=== PATIENT | male | born 1950 | race Caucasian/White ===

== ENCOUNTER → 2018-01-29 07:10 | Outpatient (CLI) | payer MEDICARE, OTHER, SELFPAY ==
[2018-01-29 10:51] LABS: BUN 18 mg/dL (7-18); Creatinine, Serum 0.86 mg/dL (0.70-1.30); Glucose 102 mg/dL (74-106)
[2018-01-29 10:52] LABS: Anion Gap 8 (5-15); BUN/Creat Ratio 20.9 RATIO (10-20); Calcium,Total 8.4 mg/dL (8.5-10.1); Chloride 104 mmol/L (98-107); Cholesterol 186 mg/dL (200); EST Glomerular Filtration Rate 94 mL/min (>60); Est Glom Filt Rate - Afr Amer 114 mL/min (>60); High Density Lipoprotein 32 mg/dL; PSA,Total - Annual Screen 1.35 ng/mL (0.00-4.00); Potassium 3.9 mmol/L (3.5-5.1); Sodium Level 142 mmol/L (136-145); Triglycerides 302 mg/dL; Very Low Density Lipoprotein 60 mg/dL (5-40)
== END ==
PROVIDERS: Family Provider Family Medicine; PCP Family Medicine; Referring Provider Family Medicine; Visit Provider Family Medicine
DX: I10 Essential (primary) hypertension (principal); Z12.5 Encounter for screening for malignant neoplasm of prostate
CPT/HCPCS: 36415; 80048; 80061; 84153; G0103

== ENCOUNTER → 2018-08-07 | Outpatient (CLI) | payer MEDICARE, OTHER, SELFPAY ==
--- NOTE | 2018-08-07 10:34 | STRESSREP ---
Stress Test Report Date: 08-07-18 Procedure: Exercise tolerance test/imaging study Indications: Chest pain; Abnormal ECG Consent: Per the patient Procedure: The patient exercised on a Diogo protocol for 6 minutes completing stage I achieving a peak heart rate of 153 bpm (100% % predicted maximal heart rate) with a peak blood pressure 230/92 mmHg and a peak MET capacity of 7 METs. The baseline ECG demonstrated normal sinus rhythm; right bundle branch block. The peak exercise ECG demonstrated continued right bundle branch block. There was an occasional PVC during exercise/recovery and transient ventricular bigeminy during recovery. The functional capacity was considered decreased. There was no complaint of chest discomfort during exercise or recovery. The examination was discontinued secondary to dyspnea. Impression: 1. Technically adequate (percent predicted maximal heart rate greater than 85%) exercise tolerance test 2. Peak exercise ECG with continued right bundle branch block pattern 3. There was an occasional PVC during exercise and recovery and transient ventricular bigeminy during recovery 4. Normal resting blood pressure-exaggerated response to exercise 5. Nuclear images pending Myocardial perfusion imaging study: Technique: The patient was injected with 14.3 mCi of technetium 99m Cardiolite and subsequently rest SPECT Cardiolite nuclear imaging was obtained in the horizontal long, vertical long, and short axis views. The patient exercised on a Diogo protocol for 6 minutes completing stage I achieving a peak heart rate of 153 bpm (100% % predicted maximal heart rate) with a peak blood pressure 230/92 mmHg and a peak MET capacity of 7 METs. The patient was injected with 44.4 mCi of technetium 99m Cardiolite and subsequently stress SPECT Cardiolite nuclear imaging was obtained in the horizontal long, vertical long, and short axis views. A gated Cardiolite study at peak stress was obtained. Interpretation: Rest and stress SPECT Cardiolite nuclear imaging status post realignment, normalization, and attenuation correction, demonstrates of a small area of subtle diminished tracer uptake near the apical segments without significant change between rest and stress. There is end systolic thickening and brightening. The gated Cardiolite study demonstrates myocardial thickening and inward wall motion. The reported LVEF is 62 %. Impression: 1. Rest and stress SPECT Cardiolite nuclear imaging demonstrate myocardial perfusion changes appearing compatible with physiologic apical thinning with no myocardial perfusion changes considered diagnostic for associated stress-induced myocardial ischemia. 2. The gated Cardiolite study reports an LVEF of 62 %. This note was generated with Dragon dictation software. It may contain incorrect words, spelling, and punctuation that were not noted in checking the note before signing.
== END | disposition home or self-care (01) ==
LOC: NM 05:52
PROVIDERS: Family Provider Family Medicine; PCP Family Medicine; Referring Provider Family Medicine; Visit Provider Family Medicine
DX: R07.9 Chest pain, unspecified (principal)
CPT/HCPCS: 78452; 93017; A9500; A4216

== ENCOUNTER → 2019-07-29 08:22 | Outpatient (CLI) | payer MEDICARE, OTHER, SELFPAY ==
[2019-07-29 10:09] LABS: Vitamin D,25 Hydroxy 26.8 ng/mL
[2019-07-29 10:12] LABS: ALB/GLOB Ratio 1.1 RATIO (0.9-2.4); AST(SGOT) 22 U/L (15-37); Alanine Aminotransfer ALT/SGPT 24 U/L (16-61); Albumin, Serum 3.6 g/dL (3.2-5.0); Alkaline Phosphatase 70 U/L (45-117); Anion Gap 4 (5-15); BUN 20 mg/dL (7-18); BUN/Creat Ratio 25.5 RATIO (10-20); Calcium,Total 8.9 mg/dL (8.5-10.1); Chloride 109 mmol/L (98-107); Cholesterol 202 mg/dL (200); Creatinine, Serum 0.78 mg/dL (0.70-1.30); EST Glomerular Filtration Rate 104 mL/min (>60); Est Glom Filt Rate - Afr Amer 126 mL/min (>60); Globulin 3.2 g/dL (2.2-4.2); Glucose 100 mg/dL (74-106); High Density Lipoprotein 39 mg/dL; Protein, Total 6.8 g/dL (6.4-8.2); Sodium Level 142 mmol/L (136-145); Triglycerides 226 mg/dL; Very Low Density Lipoprotein 45 mg/dL (5-40)
== END ==
PROVIDERS: PCP Family Medicine; Visit Provider Family Medicine
DX: E78.00 Pure hypercholesterolemia, unspecified (principal); E55.9 Vitamin D deficiency, unspecified; I10 Essential (primary) hypertension
CPT/HCPCS: 36415; 80053; 80061; 82306

== ENCOUNTER 2019-09-20 17:24 | Emergency (ER) | payer MEDICARE, OTHER, SELFPAY ==
[2019-09-20 17:25] VITALS: BP 150/110; PULSE 97; RESP 16; TEMP 36.6; O2SAT 96; BMI 32.0
[2019-09-20] MEDS: Gelfoam 12-7 MM Sponge (1) 1 EACH TP (18:57)
--- NOTE | 2019-09-20 20:01 | ED.DCSUM_ITS ---
- ER Visit Summary Date of Service: 09/20/19 Chief Complaint: Right index finger laceration History of Present Illness: The patient is a 69 M who presents with a laceration to his right index finger that occurred today approximately 4 hours prior to arrival. Patient states he was using a knife to cut meat when he accidentally cut his finger. 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 Patient states he has been applying pressure to the area. Patient states the bleeding is been persistent. Patient describes the pain is sharp. Patient denies any paresthesias or weakness. Patient states his last tetanus was between 5 and 10 years ago. Physical Examination: Vital signs are stable. Patient is afebrile. Patient is in no acute distress. Examination of the right hand reveals a 1.5 x 1 cm avulsion laceration over the tip of the right index finger. There is moderate bleeding. Sensation was intact to light touch in all digits. Capillary refill was less than 2 seconds in all digits. There is full range of motion in all digits. Radial pulses are equal bilaterally. Emergency Department Course and Treatment: Gelfoam dressing was applied. The weaning was stopped with this. Patient was given a dressing. Patient was instructed to maintain the dressing today and tomorrow. Patient was instructed to change dressing daily after this. Patient was instructed to follow-up with his primary care physician in 5 to 7 days. Patient understood and was agreeable with the plan. All questions were answered. Disposition: Discharge home Impression: Right index finger laceration This note was generated with [employer] dictation software. It may contain incorrect words, spelling, and punctuation that were not noted in review of the chart prior to signing ED Disposition - Plan for ED Patient: Disposition: Home or Assisted Living Instructions: ED Laceration Small or Superficial Not Stitched Referrals: Carlos Tolentino MD [Primary Care Provider] - 5-7 Days
== END 2019-09-20 20:31 | disposition home or self-care (01) ==
PROVIDERS: Emergency Provider Emergency Medicine; PCP Family Medicine
DX: S61.210A Laceration without foreign body of right index finger without damage to nail, initial encounter (principal); W26.0XXA Contact with knife, initial encounter; Y93.9 Activity, unspecified; Y92.9 Unspecified place or not applicable; I10 Essential (primary) hypertension; E78.00 Pure hypercholesterolemia, unspecified; Z79.82 Long term (current) use of aspirin; Z79.899 Other long term (current) drug therapy
CPT/HCPCS: 99283

== ENCOUNTER → 2020-02-24 07:07 | Outpatient (CLI) | payer MEDICARE, OTHER, SELFPAY ==
[2020-02-24 10:11] LABS: Vitamin D,25 Hydroxy 13.9 ng/mL
[2020-02-24 10:13] LABS: ALB/GLOB Ratio 1.1 RATIO (0.9-2.4); AST(SGOT) 19 U/L (15-37); Alanine Aminotransfer ALT/SGPT 27 U/L (16-61); Albumin, Serum 3.5 g/dL (3.2-5.0); Alkaline Phosphatase 71 U/L (45-117); Anion Gap 6 (5-15); BUN 15 mg/dL (7-18); BUN/Creat Ratio 20.2 RATIO (10-20); Calcium,Total 8.5 mg/dL (8.5-10.1); Chloride 109 mmol/L (98-107); Cholesterol 187 mg/dL (200); Creatinine, Serum 0.74 mg/dL (0.70-1.30); EST Glomerular Filtration Rate 111 mL/min (>60); Est Glom Filt Rate - Afr Amer 134 mL/min (>60); Globulin 3.1 g/dL (2.2-4.2); Glucose 101 mg/dL (74-106); High Density Lipoprotein 38 mg/dL; PSA,Total - Annual Screen 1.22 ng/mL (0.00-4.00); Potassium 3.8 mmol/L (3.5-5.1); Protein, Total 6.6 g/dL (6.4-8.2); Sodium Level 142 mmol/L (136-145); Triglycerides 209 mg/dL; Very Low Density Lipoprotein 42 mg/dL (5-40)
== END ==
PROVIDERS: PCP Family Medicine; Referring Provider Family Medicine; Visit Provider Family Medicine
DX: E78.00 Pure hypercholesterolemia, unspecified (principal); Z12.5 Encounter for screening for malignant neoplasm of prostate; E55.9 Vitamin D deficiency, unspecified
CPT/HCPCS: 36415; 80053; 80061; 82306; 84153; G0103

== ENCOUNTER → 2020-07-27 14:33 | Outpatient (CLI) | payer MEDICARE, OTHER, SELFPAY ==
--- NOTE | 2020-07-27 14:36 | RAD_ITS ---
STUDY: X-RAY - LEFT KNEE REASON FOR EXAM: Male, 70 years old. PAIN TECHNIQUE: 4 view(s) of the knee. COMPARISON: 07/19/2016 FINDINGS: No acute fracture or dislocation however, increased tricompartmental osteoarthritis. No significant joint effusion or soft tissue swelling RAD/Knee 4 or More Views IMPRESSION: Increased degenerative changes without acute findings Electronically Signed: Thom Hyatt DO at 1:23 EDT Tel , Service support ,
== END ==
PROVIDERS: PCP Family Medicine; Referring Provider Family Medicine; Visit Provider Family Medicine
DX: M25.562 Pain in left knee (principal)
CPT/HCPCS: 73564

== ENCOUNTER → 2020-11-17 | Outpatient (CLI) | payer MEDICARE, OTHER, SELFPAY ==
[2020-11-17 10:34] LABS: Vitamin D,25 Hydroxy 22.8 ng/mL
[2020-11-17 10:40] LABS: ALB/GLOB Ratio 1.2 RATIO (0.9-2.4); AST(SGOT) 19 U/L (15-37); Alanine Aminotransfer ALT/SGPT 30 U/L (16-61); Albumin, Serum 3.8 g/dL (3.2-5.0); Alkaline Phosphatase 76 U/L (45-117); Anion Gap 5 (5-15); BUN 17 mg/dL (7-18); BUN/Creat Ratio 23.5 RATIO (10-20); Calcium,Total 8.8 mg/dL (8.5-10.1); Chloride 104 mmol/L (98-107); Cholesterol 224 mg/dL (200); Creatinine, Serum 0.72 mg/dL (0.70-1.30); EST Glomerular Filtration Rate 114 mL/min (>60); Est Glom Filt Rate - Afr Amer 138 mL/min (>60); Globulin 3.1 g/dL (2.2-4.2); Glucose 122 mg/dL (74-106); High Density Lipoprotein 34 mg/dL; Protein, Total 6.9 g/dL (6.4-8.2); Sodium Level 139 mmol/L (136-145); Triglycerides 282 mg/dL; Very Low Density Lipoprotein 56 mg/dL (5-40)
== END | disposition home or self-care (01) ==
LOC: MTLAB 08:30
PROVIDERS: PCP Family Medicine; Referring Provider Family Medicine; Visit Provider Family Medicine
DX: E78.00 Pure hypercholesterolemia, unspecified (principal); E55.9 Vitamin D deficiency, unspecified
CPT/HCPCS: 36415; 80053; 80061; 82306